=== PATIENT | male | born 2000 | race Caucasian/White ===

== ENCOUNTER 2022-02-09 12:24 | Emergency (ER) | payer SELFPAY ==
[2022-02-09] MEDS ORDERED: Albuterol 200 PUFF (6.7GM INHALER) ONE (13:17)
== END 2022-02-09 13:45 | disposition home or self-care (01) ==
LOC: ERS 12:24
DX: J45.901 Unspecified asthma with (acute) exacerbation (principal); F17.290 Nicotine dependence, other tobacco product, uncomplicated; Z20.822 Contact with and (suspected) exposure to COVID-19
CPT/HCPCS: 71045; U0003; U0005